=== PATIENT | male | born 2000 | race Hispanic/Latino ===

== ENCOUNTER 2019-04-11 17:36 | Emergency (ER) | payer SELFPAY ==
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
== END 2019-04-11 20:50 | disposition home or self-care (01) ==
LOC: ER 17:36
DX: M54.2 Cervicalgia (principal); V59.40XA Driver of pick-up truck or van injured in collision with unspecified motor vehicles in traffic accident, initial encounter
CPT/HCPCS: 72125; 72131; 99284